=== PATIENT | female | born 1995 | race Caucasian/White ===

== ENCOUNTER 2024-02-07 18:28 | Emergency (ER) | payer OTHER, SELFPAY ==
[2024-02-07 18:30] VITALS: BP 132/94
[2024-02-07 19:31] VITALS: BMI 21.3
--- NOTE | 2024-02-07 19:38 | ED.MUSCINJ ---
HPI-Injury
General
Chief Complaint: Musculo-Skeletal Complaint
Source: patient
Time Seen by Provider: 02/07/24 19:28
History of Present Illness-Injury
Initial Injury comments:
28yoF presenting for evaluation of a left ankle injury. Patient was walking down the steps about 2 hours ago. She states she missed a step and inverted her left ankle. She heard a crack and has been having pain in the lateral ankle since that
time. She has been unable to bear weight. No paresthesias. No prior injuries to the left ankle.
Phy Exam
General Physical Exam
General Presentation: well appearing and no apparent distress
General age: appears stated age
General Skin: warm and dry
General Habitus: normal
General Mental: alert
ENT Exam
ENT Exam: normocephalic
Musculoskeletal Exam
Musculoskeletal Exam: other (L ankle: No deformity, swelling, or ecchymosis. +Tenderness to lateral malleolus. No tenderness in foot or proximal fibula. ROM of ankle and knee intact. 2+ DP pulse and sensation intact. )
Skin Exam
Skin Exam: normal color and warm/dry
Psychiatric Exam
Psychiatric Exam: normal mood/affect
Injury Course
Orders/Labs/Results
Orders:
Orders
02/07/24 18:33
Ankle, left 3 view CR [CR Ankle - Left Min 3 Views ] Urgent
Comment:
Reason For Exam: fall, pain
Foot, Left 3 View [CR Foot - Left Min 3 Views] Urgent
Comment:
Reason For Exam: fall, pain
02/07/24 19:38
Air Splint Left-Treatment ONCE
Crutches-Treatment ONCE
MDM/Problems Addressed
Differential Diagnosis Includes:
28yoF here with L ankle pain after an injury. No deformity on exam. +Lateral malleolus tenderness. LLE is neurovascularly intact. Differential diagnosis includes: fracture vs. sprain.
X-rays of L knee and foot obtained which are negative for fractures per my interpretation. She was diagnosed with an ankle sprain. Air cast and crutches ordered. Supportive care discussed. Advised f/u with orthopedics if symptoms persist. She was
discharged in stable condition.
*Critical Care Note
Total Time (30-74mins, 75-104mins- exclusive of procedures): Not Applicable
ED Attending Note
-
Portions of this chart may have been created with voice recognition software.� Occasional wrong word or��sound alike� substitutions may have occurred due to the inherent limitations of voice recognition software.
Discharge Plan
Departure
Patient Disposition: Home (Routine Discharge)
Date of Disposition: 02/07/24
Time of Disposition: 19:39
Patient with high blood pressure during this ER visit?: No
Discharge Problem:
Left ankle sprain
Instructions: Ankle Sprain ED
Prescriptions:
No Action
No Current Medications
0
Referrals:
Sathya Kumar MD [Active] -
Stand Alone Forms: Return to Work
Activity Restrictions/Additional Instructions:
Rest, ice, compress, and elevate your ankle. Take Tylenol and ibuprofen as needed for pain. Use crutches as needed.
Please follow-up with orthopedics if symptoms persist.
Interventions
Interventions:
*Risk Screen - Suicide Last Done: 02/07/24 19:31
*General Assessment Last Done: 02/07/24 19:31
*Neglect/Abuse Screening Last Done: 02/07/24 19:31
ED- Fall Risk Assessment Last Done: 02/07/24 19:31
*ED COVID-19 Vaccine History Last Done: 02/07/24 19:31
*Nursing Disposition Last Done: 02/07/24 19:53
ED-Musculoskeletal Assessment Last Done: 02/07/24 19:31
Discharge Date and Time
Print Language: MALAY
[2024-02-07 20:00] VITALS: BP 136/71
== END 2024-02-07 20:11 | disposition home or self-care (01) ==
LOC: EMR 18:28
PROVIDERS: EMERGENCY PHYSICIAN Emergency Medicine; FAMILY PHYSICIAN Nurse Practitioner Family
DX: S93.402A Sprain of unspecified ligament of left ankle, initial encounter (principal); W19.XXXA Unspecified fall, initial encounter; Y93.01 Activity, walking, marching and hiking
CPT/HCPCS: 99283; 73610; 73630

== ENCOUNTER → 2024-05-12 13:02 | Outpatient (REF) | payer OTHER, SELFPAY | LOC: HWRAD 13:02 | PROVIDERS: ATTENDING PHYSICIAN Student in an Organized Health Care Education/Training Program; FAMILY PHYSICIAN Nurse Practitioner Family | DX: M25.572 Pain in left ankle and joints of left foot (principal) | CPT/HCPCS: 73700 ==

== ENCOUNTER → 2024-07-25 12:34 | Outpatient (REF) | payer OTHER, SELFPAY | LOC: PAVMRI 12:34 | PROVIDERS: ATTENDING PHYSICIAN Student in an Organized Health Care Education/Training Program; FAMILY PHYSICIAN Nurse Practitioner Family | DX: M25.572 Pain in left ankle and joints of left foot (principal) | CPT/HCPCS: 73721 ==